=== PATIENT | female | born 1985 | race Caucasian/White ===

== ENCOUNTER 2021-01-20 16:48 | Inpatient (IN) | payer MEDICAID ==
[~2021-01-20] VITALS: Ht 137.7 cm; Wt 129.9 kg
[2021-01-20 17:10] VITALS: BP 137/94
[2021-01-20 17:15] VITALS: BP 138/85
[2021-01-20] MEDS ORDERED: MINERAL OIL CONCENTRATE 99.9% 15 ML UDC TOP PRN (17:45)
[2021-01-20] MEDS ORDERED: D5 LR IV SOLUTION 1,000 ML IV SCH (17:45)
[2021-01-20 18:11] LABS: BASOPHILS % (AUTO) 0 % (0-10); EOSINOPHILS # (AUTO) 0.1 10^3/uL (0.0-0.3); EOSINOPHILS % (AUTO) 0 % (0-10); HEMATOCRIT 41 % (35-52); HEMOGLOBIN 14.1 g/dL (11.5-16.0); LYMPHOCYTES # (AUTO) 1.8 10^3/uL (1.0-4.0); LYMPHOCYTES % (AUTO) 13 % (12-44); MEAN CORPUSCULAR HEMOGLOBIN 32 pg (25-34); MEAN CORPUSCULAR HGB CONC 35 g/dL (32-36); MEAN CORPUSCULAR VOLUME 92 fL (80-99); MEAN PLATELET VOLUME 8.5 fL (9.0-12.2); MONOCYTES % (AUTO) 7 % (0-12); NEUTROPHILS # (AUTO) 10.4 10^3/uL (1.8-7.8); NEUTROPHILS % (AUTO) 78 % (42-75); PLATELET COUNT 269 10^3/uL (130-400); WHITE BLOOD COUNT 13.4 10^3/uL (4.3-11.0)
[2021-01-20 18:20] LABS: ALBUMIN 3.1 GM/DL (3.2-4.5); POTASSIUM 3.8 MMOL/L (3.6-5.0)
[2021-01-20 18:22] LABS: CALCIUM 9.1 MG/DL (8.5-10.1)
[2021-01-20 18:23] LABS: TOTAL PROTEIN 6.5 GM/DL (6.4-8.2)
[2021-01-20 18:25] LABS: BILIRUBIN,TOTAL 0.4 MG/DL (0.1-1.0)
[2021-01-20 18:27] LABS: CREATININE SERUM 0.62 MG/DL (0.60-1.30)
[2021-01-20 18:30] LABS: URIC ACID 4.4 MG/DL (2.6-7.2)
[2021-01-20 19:02] LABS: AMPHETAMINE SCREEN, URINE POSITIVE (NEGATIVE); BARBITURATE SCREEN URINE NEGATIVE (NEGATIVE); BENZODIAZEPINES SCREEN URINE NEGATIVE (NEGATIVE); CANNABINOID SCREEN, URINE POSITIVE (NEGATIVE); COCAINE SCREEN URINE NEGATIVE (NEGATIVE); METHADONE STAT NEGATIVE (NEGATIVE); METHAMPHETAMINE SCREEN URINE S POSITIVE (NEGATIVE); OPIATE SCREEN URINE NEGATIVE (NEGATIVE); OXYCODONE STAT NEGATIVE (NEGATIVE); PROPOXYPHENE STAT NEGATIVE (NEGATIVE); TRICYCLIC ANTIDEPRESSANTS SCRE NEGATIVE (NEGATIVE)
[2021-01-20] MEDS ORDERED: AMPICILLIN FOR IV USE 2,000 MG in WATER (STERILE) FOR INJECTION 14.8 ML IV SCH (19:16)
[2021-01-20 20:18] VITALS: BP 135/85
[2021-01-20 21:30] VITALS: BP 125/77
[2021-01-20] MEDS ORDERED: CATHETER FLUSH 10 ML SYR IV SCH (22:00)
[2021-01-20 23:40] VITALS: BP 134/78
[2021-01-20] MEDS: AMPICILLIN FOR IV USE 1,000 MG in WATER (STERILE) FOR INJECTION 7.4 ML IV SCH (23:46)
[2021-01-21] VITALS (20 sets, daily range): BP systolic 113–188; BP diastolic 56–101
[2021-01-21] MEDS: OXYTOCIN PRE-MIX DRIP 500 ML IV SCH ×2 (00:44→06:36)
[2021-01-21] MEDS: AMPICILLIN FOR IV USE 1,000 MG in WATER (STERILE) FOR INJECTION 7.4 ML IV SCH (03:13)
[2021-01-21] MEDS ORDERED: fentaNYL 2 mcg/ml BUPIVA 0.125 0 ML ONE (03:51)
[2021-01-21] MEDS ORDERED: LIDOCAINE 1% INJ 20 ML 20 ML VIAL ONE (05:37)
[2021-01-21] MEDS ORDERED: LIDOCAINE/EPI 2% 1:200,00 (XYLOCAINE) 20 ML VIAL ONE (05:38)
--- NOTE | 2021-01-21 06:32 | History & Physical-OB ---
OB - Chief Complaint & HPI Date/Time Date of Admission: Date of Admission: Jan 20, 2021 at 17:39 Date seen by a Provider: Jan 21, 2021 Time Seen by a Provider: 05:45 Chief Complaint/History OB-Reason for Admission/Chief: Obstetrical Complication (Pre eclampsia with mild features) Hx : 4 Hx Para: 3 Expected Date of Delivery: Jan 20, 2021 Gestational Age in Weeks: 40 Gestational Age in Days: 2 History of Labs O+, Ab neg, Rub Imm HIV/RPR/hepB/C NR GBS Unknown UDS: + Meth, Amp, MJ Allergies and Home Medications Allergies Coded Allergies: No Known Drug Allergies (Unverified , 01/20/21) Patient Home Medication List Home Medication List Reviewed: Yes OB - History Hx of Present Care: No Ultrasounds: Other (First US on Monday 37.3) Obstetrical Complications: Pre-eclampsia Medical Complications: Other (Obesity) Information Induced Hypertension: No Maternal Gestational Diabetes: No Hemorrhage: No Obstetrical History Hx : 4 Hx Para: 3 Hx # Term Pregnancies: 3 Number of Living Children: 3 Patient Past Medical History Obesity Substance Abuse Social History/Family History Alcohol Use: Denies Use Recreational Drug Use: Yes Smoking Cessation: Current every day smoker Immunizations Hepatitis A: Yes Hepatitis B: Yes Rubella: immune RPR/VDRL: Negative GBS Status: Unknown HBsAG: Negative OB - Admission Exam Physical Exam Vitals: Vital Signs 01/20/21 01/21/21 01/21/21 21:30 01:40 02:40 Temp 36.1 Pulse 100 Resp 18 B/P (MAP) 181/91 (121) Pulse Ox 98 O2 Delivery Room Air HEENT: NCAT Heart: Rhythm Normal Lungs: Clear Abdomen: Gravid Cervical Dilatation: 10cm Effacement: 100% Station: +1 Membranes: Ruptured Amniotic Fluid: Thick Meconium Heart Rate: 140's Accelerations: Accelerations Present Decelerations: Early Decelerations Short Term Variability: Present Fdc Variability: Average (6-25) Contractions on Admission: < 5 Minutes Apart Intensity: Firm Labs Laboratory Tests Test 01/20/21 17:00 01/20/21 17:55 Range/Units Urine Protein 23 H 6-12 MG/DL Urine Creatinine 222 H 30-125 MG/DL Urine Protein/Creatinine Ratio 0.10 Urine Opiates Screen NEGATIVE NEGATIVE Urine Oxycodone Screen NEGATIVE NEGATIVE Urine Methadone Screen NEGATIVE NEGATIVE Urine Propoxyphene Screen NEGATIVE NEGATIVE Urine Barbiturates Screen NEGATIVE NEGATIVE Ur Tricyclic Antidepressants Screen NEGATIVE NEGATIVE Urine Phencyclidine Screen NEGATIVE NEGATIVE Urine Amphetamines Screen POSITIVE H NEGATIVE Urine Methamphetamines Screen POSITIVE H NEGATIVE Urine Benzodiazepines Screen NEGATIVE NEGATIVE Urine Cocaine Screen NEGATIVE NEGATIVE Urine Cannabinoids Screen POSITIVE H NEGATIVE White Blood Count 13.4 H 4.3-11.0 10^3/uL Red Blood Count 4.45 3.80-5.11 10^6/uL Hemoglobin 14.1 11.5-16.0 g/dL Hematocrit 41 35-52 % Mean Corpuscular Volume 92 80-99 fL Mean Corpuscular Hemoglobin 32 25-34 pg Mean Corpuscular Hemoglobin Concent 35 32-36 g/dL Red Cell Distribution Width 13.4 10.0-14.5 % Platelet Count 269 130-400 10^3/uL Mean Platelet Volume 8.5 L 9.0-12.2 fL Immature Granulocyte % (Auto) 1 % Neutrophils (%) (Auto) 78 H 42-75 % Lymphocytes (%) (Auto) 13 12-44 % Monocytes (%) (Auto) 7 0-12 % Eosinophils (%) (Auto) 0 0-10 % Basophils (%) (Auto) 0 0-10 % Neutrophils # (Auto) 10.4 H 1.8-7.8 10^3/uL Lymphocytes # (Auto) 1.8 1.0-4.0 10^3/uL Monocytes # (Auto) 1.0 0.0-1.0 10^3/uL Eosinophils # (Auto) 0.1 0.0-0.3 10^3/uL Basophils # (Auto) 0.0 0.0-0.1 10^3/uL Immature Granulocyte # (Auto) 0.1 0.0-0.1 10^3/uL Sodium Level 139 135-145 MMOL/L Potassium Level 3.8 3.6-5.0 MMOL/L Chloride Level 104 98-107 MMOL/L Carbon Dioxide Level 23 21-32 MMOL/L Anion Gap 12 5-14 MMOL/L Blood Urea Nitrogen 6 L 7-18 MG/DL Creatinine 0.62 0.60-1.30 MG/DL Estimat Glomerular Filtration Rate 110 BUN/Creatinine Ratio 10 Glucose Level 104 70-105 MG/DL Uric Acid 4.4 2.6-7.2 MG/DL Calcium Level 9.1 8.5-10.1 MG/DL Corrected Calcium 9.8 8.5-10.1 MG/DL Total Bilirubin 0.4 0.1-1.0 MG/DL Aspartate Amino Transf (AST/SGOT) 14 5-34 U/L Alanine Aminotransferase (ALT/SGPT) 18 0-55 U/L Alkaline Phosphatase 169 H 40-136 U/L Lactate Dehydrogenase 246 H 125-220 U/L Total Protein 6.5 6.4-8.2 GM/DL Albumin 3.1 L 3.2-4.5 GM/DL OB - Assessment/Plan/Diagnosis Assessment Admission Dx Pre eclampsia with mild features Third Trimester 40 week gestation Obesity in Substance abuse in Late care, completed 2 visits prior to delivery Admission Status: Inpatient Order (span 2 midnights) Reason for Inpatient Admission: Labor Plan Other Plan 35 yo @ 40.1 wga here for pre eclampsia with mild features Plan - Expectant management - SROM @2330, labor was then augmented at that time due to thick meconium - GBS Unknown: Started on Ampicillin - SW consult due to Substance use Copy Copies To 1: SUSAN BAILEY MD, HOLLY R MD Jan 21, 2021 06:32
--- NOTE | 2021-01-21 06:35 | OB Labor & Delivery Record ---
Vag Delivery Note Vag Delivery Note Date of Delivery: 01/21/21 Preoperative Diagnosis: Linda Narayanan is a (35 /Para 4/3 ,Gestational Age 40.2 (wks) sent here for pre eclampsia with mild features Postoperative Diagnosis: Same Surgeon: SUSAN BAILEY Dimpling Machine Operator: none Anesthesia: Natural Delivery Type: @ 0600 Findings: Viable term infant covered in thick meconium, apgars 8/9, weight 7#9, 3420 grams Lacerations: None Intact placenta with 3 vessel cord. No nuchal cord, body cord or shoulder dystocia Estimated Blood Loss: 100 ml Complications: None Condition: Stable Description of Procedure: The patient is a 35 year old female who presented from clinic after elevated blood pressures. She was admitted and informed consent was obtained. Her labor course was remarkable for thick meconium with SROM 2330. She progressed to complete dilatation and began to push. She was then set up for delivery. The 's head was delivered atraumatically in the CONRADO position. The shoulders and remainder of the infant's body were then delivered without difficulty. Upon delivery, the head was held below the level of the perineum and the mouth and nares were bulb suctioned. The cord was doubly clamped and cut and the was handed off to the pediatric staff and to warmer due to thick meconium. Infant had spontaneous breathing and was suctioned at warmer. An intact placenta with 3-vessel cord delivered via Abhay and there was found to be minimal bleeding.~ Vigorous fundal massage was performed and the fundus was found to be firm. IV oxytocin was given. Examination of the vagina and perineum revealed no lacerations that require repair. Following the repair, sponge, instrument and needle counts were correct. Mom and baby were both in stable condition in the labor suite. Vitals - Labs Vital Signs - I&O Vital Signs Date Time Temp Pulse Resp B/P (MAP) Pulse Ox O2 Delivery O2 Flow Rate FiO2 01/21/21 02:40 100 18 181/91 (121) 01/21/21 02:00 101 16 141/83 (102) 01/21/21 01:40 36.1 83 18 147/85 (105) 01/21/21 01:20 133/78 (96) 01/21/21 01:00 136/83 (100) 01/21/21 00:40 147/85 (105) 01/20/21 23:40 36.5 96 18 134/78 (96) 01/20/21 21:30 101 18 125/77 (93) 98 Room Air 01/20/21 20:18 36.5 94 18 135/85 (102) Room Air 01/20/21 17:15 104 20 138/85 (102) 01/20/21 17:10 36.5 115 20 97 Room Air Labs Laboratory Tests 01/20/21 17:00: Urine Protein 23H, Urine Creatinine 222H, Urine Protein/Creatinine Ratio 0.10, Urine Opiates Screen NEGATIVE, Urine Oxycodone Screen NEGATIVE, Urine Methadone Screen NEGATIVE, Urine Propoxyphene Screen NEGATIVE, Urine Barbiturates Screen NEGATIVE, Ur Tricyclic Antidepressants Screen NEGATIVE, Urine Phencyclidine Screen NEGATIVE, Urine Amphetamines Screen POSITIVEH, Urine Methamphetamines Screen POSITIVEH, Urine Benzodiazepines Screen NEGATIVE, Urine Cocaine Screen NEGATIVE, Urine Cannabinoids Screen POSITIVEH 01/20/21 17:55: White Blood Count 13.4H, Red Blood Count 4.45, Hemoglobin 14.1, Hematocrit 41, Mean Corpuscular Volume 92, Mean Corpuscular Hemoglobin 32, Mean Corpuscular Hemoglobin Concent 35, Red Cell Distribution Width 13.4, Platelet Count 269, Mean Platelet Volume 8.5L, Immature Granulocyte % (Auto) 1, Neutrophils (%) (Auto) 78H, Lymphocytes (%) (Auto) 13, Monocytes (%) (Auto) 7, Eosinophils (%) (Auto) 0, Basophils (%) (Auto) 0, Neutrophils # (Auto) 10.4H, Lymphocytes # (Auto) 1.8, Monocytes # (Auto) 1.0, Eosinophils # (Auto) 0.1, Basophils # (Auto) 0.0, Immature Granulocyte # (Auto) 0.1, Sodium Level 139, Potassium Level 3.8, Chloride Level 104, Carbon Dioxide Level 23, Anion Gap 12, Blood Urea Nitrogen 6L, Creatinine 0.62, Estimat Glomerular Filtration Rate 110, BUN/Creatinine Ratio 10, Glucose Level 104, Uric Acid 4.4, Calcium Level 9.1, Corrected Calcium 9.8, Total Bilirubin 0.4, Aspartate Amino Transf (AST/SGOT) 14, Alanine Aminotransferase (ALT/SGPT) 18, Alkaline Phosphatase 169H, Lactate Dehydrogenase 246H, Total Protein 6.5, Albumin 3.1L GAULT,SUSAN R MD Jan 21, 2021 06:35
[2021-01-21] MEDS ORDERED: WITCH HAZEL(TUCKS) 40 EA JAR TOP PRN (06:45)
[2021-01-21] MEDS ORDERED: BENZOCAINE/MENTHOL (DERMOPLAST) 56 ML CAN TP PRN (06:45)
[2021-01-21] MEDS ORDERED: NALOXONE 0.4 MG/ML 1 ML (NARCAN) VIAL IV PRN (06:45)
[2021-01-21] MEDS ORDERED: TETANUS,DIPTH,PERTUSS P/F (BOOSTRIX) 0.5 ML VIAL IM ONE (06:45)
[2021-01-21] MEDS ORDERED: OXYTOCIN PRE-MIX DRIP 500 ML IV SCH (06:45)
[2021-01-21] MEDS ORDERED: NICOTINE 21 MG (NICODERM) PATCH TD ONE (07:30)
[2021-01-21] MEDS ORDERED: IBUPROFEN 600 MG (MOTRIN) TAB PO ONE (08:19)
[2021-01-21] MEDS ORDERED: ACETAMINOPHEN 500 MG TAB (TYLENOL) ONE (08:19)
[2021-01-21] MEDS: PRENATAL VITAMIN 1 EA TAB PO SCH (08:24)
[2021-01-21] MEDS: DOCUSATE SODIUM 100 MG (COLACE) CAP PO SCH ×2 (08:25→21:46)
[2021-01-21] MEDS: IBUPROFEN 600 MG (MOTRIN) TAB PO SCH ×3 (08:25→21:45)
[2021-01-21] MEDS: ACETAMINOPHEN 500 MG TAB (TYLENOL) PO SCH ×3 (08:25→21:46)
[2021-01-21] MEDS ORDERED: CATHETER FLUSH 10 ML SYR IV SCH (14:00)
[2021-01-22 00:40] VITALS: BP 132/84
[2021-01-22 04:28] VITALS: BP 140/76
[2021-01-22] MEDS: IBUPROFEN 600 MG (MOTRIN) TAB PO SCH ×4 (04:28→20:49)
[2021-01-22] MEDS: ACETAMINOPHEN 500 MG TAB (TYLENOL) PO SCH ×3 (04:28→20:49)
[2021-01-22] MEDS ORDERED: NICOTINE PATCH REMOVAL TP ONE (07:00)
[2021-01-22 07:53] LABS: BASOPHILS # (AUTO) 0.1 10^3/uL (0.0-0.1); BASOPHILS % (AUTO) 1 % (0-10); EOSINOPHILS # (AUTO) 0.2 10^3/uL (0.0-0.3); EOSINOPHILS % (AUTO) 1 % (0-10); HEMATOCRIT 36 % (35-52); HEMOGLOBIN 12.4 g/dL (11.5-16.0); LYMPHOCYTES # (AUTO) 2.4 10^3/uL (1.0-4.0); LYMPHOCYTES % (AUTO) 20 % (12-44); MEAN CORPUSCULAR HEMOGLOBIN 32 pg (25-34); MEAN CORPUSCULAR HGB CONC 35 g/dL (32-36); MEAN CORPUSCULAR VOLUME 92 fL (80-99); MEAN PLATELET VOLUME 8.4 fL (9.0-12.2); MONOCYTES % (AUTO) 9 % (0-12); NEUTROPHILS % (AUTO) 68 % (42-75); PLATELET COUNT 229 10^3/uL (130-400); WHITE BLOOD COUNT 11.8 10^3/uL (4.3-11.0)
[2021-01-22] MEDS ORDERED: TETANUS,DIPTH,PERTUSS P/F (BOOSTRIX) 0.5 ML VIAL IM ONE (09:39)
[2021-01-22 10:06] VITALS: BP 140/78
[2021-01-22] MEDS: DOCUSATE SODIUM 100 MG (COLACE) CAP PO SCH ×2 (10:08→20:48)
[2021-01-22] MEDS: PRENATAL VITAMIN 1 EA TAB PO SCH (10:08)
[2021-01-22] MEDS: NICOTINE 21 MG (NICODERM) PATCH TD SCH ×2 (10:17→12:52)
--- NOTE | 2021-01-22 11:41 | Progress Note ---
Subjective Subjective/Events-last exam No complaints. Bleeding normal. Pain controlled. Objective Exam Last Set of Vital Signs Vital Signs Date Time Temp Pulse Resp B/P (MAP) Pulse Ox O2 Delivery O2 Flow Rate FiO2 01/22/21 04:28 36.3 80 18 140/76 (97) 96 Room Air Capillary Refill : Less Than 3 Seconds General: Alert, Oriented X3, Cooperative Psych/Mental Status: Mental Status NL, Mood NL Results/Procedures Lab Laboratory Tests 01/22/21 07:40: White Blood Count 11.8H, Red Blood Count 3.91, Hemoglobin 12.4, Hematocrit 36, Mean Corpuscular Volume 92, Mean Corpuscular Hemoglobin 32, Mean Corpuscular Hemoglobin Concent 35, Red Cell Distribution Width 13.5, Platelet Count 229, Mean Platelet Volume 8.4L, Immature Granulocyte % (Auto) 2, Neutrophils (%) (Auto) 68, Lymphocytes (%) (Auto) 20, Monocytes (%) (Auto) 9, Eosinophils (%) (Auto) 1, Basophils (%) (Auto) 1, Neutrophils # (Auto) 8.0H, Lymphocytes # (Auto) 2.4, Monocytes # (Auto) 1.0, Eosinophils # (Auto) 0.2, Basophils # (Auto) 0.1, Immature Granulocyte # (Auto) 0.2H Assessment/Plan Assessment/Plan (1) Status post vaginal delivery Assessment & Plan: s/p on 01/21/21 at approximately 40 weeks; GBS unknown (treated with 3 doses of antibiotic prior to delivery); thick meconium at delivery. Insufficient prental care (2 visits prior to delivery) Elevated BP prior to delivery. PPD#1 BP improving, asymptomatic. (2) Methamphetamine use Assessment & Plan: Kiln Charger/DCF consulted. Patient is very forthcoming about history of and current methamphetamine use. Pt appears willing to engage in treatment as OP. Discussed ATS services available at [facility]. Copy Copies To 1: SUSAN BAILEY MD, LINDA K DO Jan 22, 2021 11:41
[2021-01-22 15:38] VITALS: BP 132/81
[2021-01-22 20:49] VITALS: BP 146/90
[2021-01-23 02:17] VITALS: BP 153/83
[2021-01-23] MEDS: IBUPROFEN 600 MG (MOTRIN) TAB PO SCH ×2 (02:17→09:05)
[2021-01-23] MEDS: ACETAMINOPHEN 500 MG TAB (TYLENOL) PO SCH ×2 (06:02→14:53)
[2021-01-23] MEDS ORDERED: NICOTINE PATCH REMOVAL TP SCH (08:59)
[2021-01-23 09:00] VITALS: BP 165/85
[2021-01-23] MEDS: DOCUSATE SODIUM 100 MG (COLACE) CAP PO SCH (09:04)
[2021-01-23] MEDS: PRENATAL VITAMIN 1 EA TAB PO SCH (09:05)
[2021-01-23] MEDS: NICOTINE 21 MG (NICODERM) PATCH TD SCH ×2 (09:05→11:53)
[2021-01-23 11:15] VITALS: BP 146/70
[2021-01-23 11:50] LABS: HEMATOCRIT 37 % (35-52); HEMOGLOBIN 12.6 g/dL (11.5-16.0); MEAN CORPUSCULAR HEMOGLOBIN 32 pg (25-34); MEAN CORPUSCULAR HGB CONC 34 g/dL (32-36); MEAN CORPUSCULAR VOLUME 94 fL (80-99); MEAN PLATELET VOLUME 8.4 fL (9.0-12.2); PLATELET COUNT 272 10^3/uL (130-400); WHITE BLOOD COUNT 12.3 10^3/uL (4.3-11.0)
[2021-01-23] MEDS ORDERED: PNV1TABL67 PO (11:54)
[2021-01-23 12:08] LABS: ALBUMIN 2.8 GM/DL (3.2-4.5); BILIRUBIN,TOTAL 0.3 MG/DL (0.1-1.0); CREATININE SERUM 0.69 MG/DL (0.60-1.30); POTASSIUM 4.4 MMOL/L (3.6-5.0); TOTAL PROTEIN 5.8 GM/DL (6.4-8.2); URIC ACID 4.7 MG/DL (2.6-7.2)
[2021-01-23 13:10] VITALS: BP 148/85
[2021-01-23 15:10] VITALS: BP 148/85
--- NOTE | 2021-01-23 20:19 | Discharge Summary ---
Discharge Summary Hospital Course Problems/Diagnosis: (1) Status post vaginal delivery Status: Acute Assessment & Plan: s/p on 01/21/21 at approximately 40 weeks; GBS unknown (treated with 3 doses of antibiotic prior to delivery); thick meconium at delivery. Insufficient prental care (2 visits prior to delivery) Elevated BP prior to delivery. PPD#1 BP improving, asymptomatic. PPD#2 BP elevated in the am, repeat preeclampsia labs negative, asymptomatic and BP improved in the afternoon, follow up in one week for BP check, strongly loreto ortiz on symptoms to return to the hospital for. (2) Methamphetamine use Assessment & Plan: Basketball Referee/DCF consulted. Patient is very forthcoming about history of and current methamphetamine use. Pt appears willing to engage in treatment as OP. Discussed ATS services available at [facility] [place]. Hospital Course Date of Admission: Jan 20, 2021 at 17:39 Admission Diagnosis : Family Physician/Provider: Date of Discharge: 01/23/21 Discharge Diagnosis: See problem list Hospital Course: See problem list Labs and Pending Lab Test: Laboratory Tests 01/23/21 11:37: White Blood Count 12.3H, Red Blood Count 3.97, Hemoglobin 12.6, Hematocrit 37, Mean Corpuscular Volume 94, Mean Corpuscular Hemoglobin 32, Mean Corpuscular Hemoglobin Concent 34, Red Cell Distribution Width 13.4, Platelet Count 272, Mean Platelet Volume 8.4L, Sodium Level 139, Potassium Level 4.4, Chloride Level 106, Carbon Dioxide Level 25, Anion Gap 8, Blood Urea Nitrogen 10, Creatinine 0.69, Estimat Glomerular Filtration Rate 97, BUN/Creatinine Ratio 14, Glucose Level 89, Uric Acid 4.7, Calcium Level 9.0, Corrected Calcium 10.0, Total Bilirubin 0.3, Aspartate Amino Transf (AST/SGOT) 21, Alanine Aminotransferase (ALT/SGPT) 28, Alkaline Phosphatase 141H, Lactate Dehydrogenase 217, Total Protein 5.8L, Albumin 2.8L 01/23/21 12:15: Urine Protein 9, Urine Creatinine 161H, Urine Protein/Creatinine Ratio 0.06 Home Meds Active Pnv Plus Multivit Tab (Pnv with Ca,No.72/Iron/FA) 1 Each Tablet 1 Ea PO DAILY@0700 Assessment/Pt DC Instructions Follow up in one week for BP check and 6 weeks for visit. Discharge Diet: No Restrictions Activity as Tolerated: Yes (avoid strenuous activity x 6 weeks) Discharge Physical Examination Allergies: Coded Allergies: No Known Drug Allergies (Unverified , 01/20/21) General Appearance: WD/WN Respiratory: Lungs Clear, Normal Breath Sounds Cardiovascular: Regular Rate, Rhythm, No Murmur Skin: Normal Color, Warm/Dry Neurologic/Psychiatric: Alert, Normal Mood/Affect Copy Copies To 1: SUSAN BAILEY MD, BETHANY N MD Jan 23, 2021 20:19
== END 2021-01-23 15:10 | disposition home or self-care (01) | DRG 807 ==
LOC: WSo 16:48 → LDRP 16:48 → WSo 17:38 → LDRP 17:39
PROVIDERS: ADMIT Family Medicine; ATTEND Family Medicine
PROC: 10E0XZZ Delivery of Products of Conception, External Approach (ICD-10-PCS; principal; 2021-01-21)
DX: O14.04 Mild to moderate pre-eclampsia, complicating childbirth (principal); Z37.0 Single live birth; Z3A.40 40 weeks gestation of pregnancy; O99.214 Obesity complicating childbirth; O99.324 Drug use complicating childbirth; O77.0 Labor and delivery complicated by meconium in amniotic fluid; F15.90 Other stimulant use, unspecified, uncomplicated
CPT/HCPCS: 36415; 80053; 80306; 82570; 83615; 84156; 84550; 85025; 85027; 86762; 86780; 86850; 86900; 86901; 90715